=== PATIENT | male | born 1990 | race African-American/Black ===

== ENCOUNTER 2021-12-04 01:05 | Inpatient (IN) | payer MEDICAID, SELFPAY ==
[2021-12-04] VITALS (26 sets, daily range): BP systolic 95–139; BP diastolic 49–94; PULSE 99–130; RESP 16–25; TEMP 36.2–37.2; O2SAT 91–100; BMI 38.3
--- NOTE | ~2021-12-04 | CT_ITS ---
EXAMINATION: CT abdomen pelvis wo con DATE: 12/04/2021 03:42 INDICATION: Right-sided abdominal pain TECHNIQUE: Computed tomography (CT) of the abdomen and pelvis was performed without intravenous contr ast. The dose-length product was 1074.05 mGy-cm. Automated exposure control and iterative reconstruct ion technique were employed. COMPARISON: None. FINDINGS: Lung bases are unremarkable. Heart size normal. Small hiatal hernia. No significant pleural or pericardial effusion. No significant vascular abnormality. No lymphadenopathy. Fatty infiltration of the liver. The spleen, pancreas, adrenal glands and kidneys are unremarkable. N onobstructive bowel gas pattern. No free air or free fluid. Gallbladder is present. No abnormal pelvi c masses or fluid collections. There are mildly prominent mesenteric lymph nodes, likely reactive. No acute osseous abnormality. IMPRESSION: 1. No acute abdominal abnormality. Reviewed, dictated and finalized at location B.
--- NOTE | 2021-12-04 01:15 | ECG_ITS ---
Measurements Intervals [place] Rate: 116 P: DC: 0 QRS: -3 QRSD: 91 T: 34 QT: 303 QTc: 422 Interpretive Statements SINUS TACHYCARDIA EARLY REPOLARIZATION WITHIN NORMAL LIMITS NO PREVIOUS ECG AVAILABLE FOR COMPARISON Electronically Signed On 12-04-2021 14:17:33 CDT by Omid Olson M.D.
[2021-12-04 01:42] LABS: Basophils Absolute Auto 0.1 K/mm3 (0.0-0.1); Basophils Percent Auto 0.7 % (0.2-1.2); Eosinophils Percent Auto 0.1 % (0-4.4); Hematocrit 55.1 % (42.0-52.0); Hemoglobin 16.5 g/dL (14.0-18.0); Immature Granulocyte Absolute 0.04 K/mm3 (0.00-0.031); Immature Granulocyte Percent A 0.4 % (0-0.5); Lymphocytes Absolute Auto 1.76 K/mm3 (0.9-3.2); Lymphocytes Percent Auto 16.9 % (18.3-44.2); Mean Corpuscular HGB Conc 29.9 g/dl (32-36); Mean Corpuscular Volume 70.2 fl (80-100); Mean Platelet Volume 9.8 fl (7.4-10.4); Monocytes Absolute Auto 0.5 K/mm3 (0.1-0.6); Monocytes Percent Auto 4.6 % (2.6-8.5); Neutrophils Absolute Auto 8.1 K/mm3 (1.3-6.7); Neutrophils Percent Auto 77.3 % (45.5-73.1); Platelet Count Result 362 k/mm3 (150-375); Red Blood Count 7.85 M/mm3 (4.6-6.20); Red Cell Distribution Width 17.2 % (11.5-14.5); White Blood Count 10.4 K/mm3 (4.5-10.0)
[2021-12-04 01:45] LABS: Hypochromasia 1+ (NORMAL); Platelet Estimate Adequate (Adequate)
[2021-12-04] MEDS: SODIUM CHLORIDE 0.9% IV 1,000 ML 999 ML IV CONT ×3 (01:45→07:49)
[2021-12-04 01:50] LABS: Add Urine Microscopic? YES; Appearance Urine Clear (Clear); Bilirubin Urine Negative (Negative); Blood Urine 1+ (Negative); Color Urine Straw (Yellow); Glucose Urine UA 3+ mg/dL (Negative); Ketones Urine 2+ mg/dL (Negative); Leukocyte Esterase Ur Negative LEU/UL (Negative); Mucus Urine Rare /lpf; Nitrate Urine Negative (Negative); Protein Urine 1+ mg/dL (Negative); Specific Grav Ur 1.024 (1.001-1.035); Urobilinogen Urine Negative mg/dL (<2.0); WBC Urine 0-3 /hpf
[2021-12-04 01:50] LABS: Alanine Aminotransferase 24 U/L (4-50); Albumin Level 5.3 g/dL (3.5-5.1); Alkaline Phosphatase 136 U/L (38-126); Anion Gap 25 mmol/L (8-16); Aspartate Amino Transferase 18 U/L (17-59); Bilirubin,Total 0.5 mg/dL (0.2-1.3); Blood Urea Nitrogen 23 mg/dL (9-20); Carbon Dioxide 15 mmol/L (22-30); Chloride 92 mmol/L (98-107); Estimated CRCL calculation 72 ml/min; Estimated Glomerular Filt Rate > 60; Glucose 484 mg/dL (65-110); Lipase 137 U/L (23-300); Potassium 5.8 mmol/L (3.4-5.0); Sodium 132 mmol/L (137-145)
[2021-12-04 02:31] LABS: Lactic Acid Reflex 1.8 mmol/L (0.7-2.1)
[2021-12-04 02:39] LABS: Alveolar/Arterial O2 Gradient 27.6 mmHg; Fractional Inspired Oxygen 21 %; HCO3 ABG 9.4 mEq/l (22.0-26.0); Oxygen Content ABG 21.9 %vol (16.0-22.0); Oxygen Saturation ABG 96.1 % (95.0-100.0); Oxyhemoglobin 95.2 % THb (90.0-100.0); PO2 ABG 94.5 mmHg (80.0-100.0); Total Hemoglobin 16.3 g/dL (12.0-18.0)
[2021-12-04 02:41] LABS: pH ABG 7.229 (7.350-7.450)
[2021-12-04 02:42] LABS: Device ROOM AIR; PCO2 ABG 23.1 mmHg (35.0-45.0); Site Drawn LEFT BRACHIAL
--- NOTE | 2021-12-04 02:45 | ED.GENADULT ---
HPI - General Adult General Chief complaint: Weakness Stated complaint: Weakness Time Seen by Provider: 12/04/21 01:44 History of Present Illness HPI narrative: Patient 31-year-old gentleman who presents the emergency department with chief complaint of generalized weakness. Patient reports that he was seen at [facility] recently and was found to be diabetic he was started on Metformin patient states he has been thirsty all the time peeing all the time but noticed that his urine output is started to decrease today. The patient states that he feels very rundown and very weak also reports discomfort in his abdomen. Patient reports has been having nausea and vomiting and has had some diarrhea with this as well. Patient reports been unable to keep fluids down. Related Data Allergies Allergy/AdvReac Type Severity Reaction Status Date / Time No Known Allergies Allergy Verified 12/04/21 02:09 Review of Systems Review of Systems: A 10 system review of systems was completed on the patient and is negative except for what is stated in the HPI. Nursing and ancillary documentation was reviewed. Exam Narrative: GENERAL: Well-appearing, well-nourished, and in no acute distress. HEAD: Normocephalic, atraumatic. EYES: PERRLA and EOMI. ENT: Nares clear, no rhinorrhea or epistaxis. Mucous membranes moist. NECK: Supple. CHEST: Clear to auscultation. No respiratory distress. HEART: Regular rate and rhythm. No murmur heard. Normal peripheral pulses. ABDOMEN: Soft, diffuse mild tenderness to palpation, nondistended, normal active bowel sounds. EXTREMITIES: Normal range of motion. No edema. SKIN: Warm, dry, no rash. NEURO: No focal deficits. Alert and oriented x3. PSYCH: Normal mood and affect. Course Course Emergency Course: EKG showed sinus tachycardia with a rate of initially 123 repeat EKG shows a heart rate of 116. Sinus tachycardia present T waves are somewhat peaked Vital Signs Vital signs: Vital Signs Temperature 37.2 C 12/04/21 01:08 Pulse Rate 118 H 12/04/21 01:08 Respiratory Rate 20 12/04/21 01:08 Blood Pressure 139/91 H 12/04/21 01:08 Pulse Oximetry 99 12/04/21 01:08 Temperature 37.2 C 12/04/21 01:08 Pulse Rate 123 H 12/04/21 04:30 Respiratory Rate 24 H 12/04/21 04:30 Blood Pressure 118/75 12/04/21 04:05 Pulse Oximetry 96 12/04/21 04:30 Medical Decision Making Vital Signs Vital Signs: Vital Signs Temperature 37.2 C 12/04/21 01:08 Pulse Rate 118 H 12/04/21 01:08 Respiratory Rate 20 12/04/21 01:08 Blood Pressure 139/91 H 12/04/21 01:08 Pulse Oximetry 99 12/04/21 01:08 Temperature 37.2 C 12/04/21 01:08 Pulse Rate 123 H 12/04/21 04:30 Respiratory Rate 24 H 12/04/21 04:30 Blood Pressure 118/75 12/04/21 04:05 Pulse Oximetry 96 12/04/21 04:30 Lab Data Result diagrams: 12/04/21 01:34 12/04/21 01:34 Labs: Lab Results 12/04/21 12/04/21 12/04/21 Range/Units 01:33 01:34 01:34 WBC 10.4 H (4.5-10.0) K/mm3 RBC 7.85 H (4.6-6.20) M/mm3 Hgb 16.5 (14.0-18.0) g/dL Hct 55.1 H (42.0-52.0) % MCV 70.2 L (80-100) fl MCH 21.0 L (26-34) pg MCHC 29.9 L (32-36) g/dl RDW 17.2 H (11.5-14.5) % Plt Count 362 (150-375) k/mm3 MPV 9.8 (7.4-10.4) fl Immature Gran % (Auto) 0.4 (0-0.5) % Neut % (Auto) 77.3 H (45.5-73.1) % Lymph % (Auto) 16.9 L (18.3-44.2) % Travis % (Auto) 4.6 (2.6-8.5) % Eos % (Auto) 0.1 (0-4.4) % Baso % (Auto) 0.7 (0.2-1.2) % Lymph # (Auto) 1.76 (0.9-3.2) K/mm3 Travis # (Auto) 0.5 (0.1-0.6) K/mm3 Eos # (Auto) 0.0 (0-0.3) K/mm3 Baso # (Auto) 0.1 (0.0-0.1) K/mm3 Abs Immat Gran (auto) 0.04 H (0.00-0.031) K/mm3 Absolute Neuts (auto) 8.1 H (1.3-6.7) K/mm3 Absolute Nucleated RBC 0.0 (0.0-0.012) K/mm3 Nucleated RBC % 0.0 (0.0-0.2) % Platelet Estimate Adequate (Adequate) Hypochromasia 1+ (NORMAL
[2021-12-04 03:05] LABS: Beta-Hydroxybutyrate/Acetoacetate 9.05 mmol/L (0.02-0.27)
[2021-12-04] MEDS: INSULIN HUMAN REGULAR (*BKC) 100 UNITS in SODIUM CHLORIDE 0.9% IV 99 ML 6.5 UNITS IV CONT (03:45)
[2021-12-04 03:53] LABS: Glucose Point of Care 386 mg/dl (65-105)
[2021-12-04] MEDS: SODIUM CHLORIDE 0.9% IV 1,000 ML 200 ML IV CONT (04:31)
[2021-12-04 04:53] LABS: Glucose Point of Care 357 mg/dl (65-105)
[2021-12-04] MEDS: SODIUM CHLORIDE 0.9% IV 1,000 ML 150 ML IV CONT ×2 (05:30→21:08)
--- NOTE | 2021-12-04 05:40 | ADMGEN ---
This patient, Hadley Farias, was admitted to Intensive Care Unit-5 on 12/04/21 at 0530. Patient/family oriented to hospital policies and general routines including ID bracelet, bed and alarms, visiting hours, pain management, procedures, bathroom and other care routines, personal items, smoking policy, room service/diet, and visiting hours. Information on how to activate the Rapid Response Team has been discussed. Patient/Family are encouraged to report perceived risks to care and to ask questions if they do not understand what they are told or what they should do.
--- NOTE | 2021-12-04 05:46 | PM.IMHP ---
H&P: HPI History of Present Illness Date/Time: 12/04/21 05:46 Chief Complaint: Generalized weakness Narrative: Patient is a 31-year-old man who presents to the ED today with generalized weakness. He had been feeling this way for the past week or so. He also has associated history of peeing all the time and feeling thirsty all the time. He was peeing every 5 minutes and hence had been to the ED a week ago at [facility]. His blood sugar there was 360 and was diagnosed with diabetes. He was discharged home on metformin which he started taking since then. He report he continued to feel weak and run down and started to have discomfort in his abdomen. He also reports that he had been having some dark colored stool. There was an episode of vomiting yesterday in the morning but has not had any nausea or vomiting otherwise. He also reported that he has not been able to keep his fluid down but he did not complain so for me. In the ER he was noted to have acidosis and was eventually diagnosed with DKA. He was started on IV fluids and IV insulin drip. He is getting admitted to ICU further evaluation and management. He denies any drug use any prior history of any medical problems. He does report a family history of diabetes in his father and grandfather at early age. Review of Systems Review of Systems: - CONSTITUTIONAL: Denies weight loss, fever and chills. - HEENT: Denies changes in vision and hearing - RESPIRATORY: Denies SOB and cough. - CV: Denies palpitations and CP. - GI: Denies abdominal pain, reports nausea, vomiting and denies diarrhea. - : Denies dysuria and urinary frequency. - MSK: Denies myalgia and joint pain. Reports generalized weakness - SKIN: Denies rash and pruritus. - NEUROLOGICAL: Denies headache and syncope. - PSYCHIATRIC: Denies recent changes in mood. Denies anxiety and depression. All systems reviewed & are unremarkable except as noted in HPI and below Constitutional: Constitutional: Reports fatigue and Reports weakness Neurologic: Reports weakness Endocrine: Endocrine: Reports fatigue Meds Home Medications and Allergies Allergies Allergy/AdvReac Type Severity Reaction Status Date / Time No Known Allergies Allergy Verified 12/04/21 02:09 Vital Signs Vital Signs - 24 hr 12/04/21 01:08 12/04/21 01:21 12/04/21 01:26 Temperature 98.9 F Pulse Rate 118 H 118 H 122 H Respiratory Rate 20 23 H Blood Pressure 139/91 H Pulse Oximetry 99 98 12/04/21 01:44 12/04/21 02:01 12/04/21 02:02 Temperature Pulse Rate 112 H 108 H 108 H Respiratory Rate 25 H 21 H 19 Blood Pressure 127/94 H Pulse Oximetry 98 99 100 12/04/21 02:30 12/04/21 03:09 12/04/21 03:10 Temperature Pulse Rate 120 H 118 H 116 H Respiratory Rate 21 H 23 H 23 H Blood Pressure 139/83 Pulse Oximetry 99 99 99 12/04/21 03:38 12/04/21 03:39 12/04/21 04:00 Temperature Pulse Rate 117 H 118 H 125 H Respiratory Rate 18 25 H 25 H Blood Pressure 128/86 Pulse Oximetry 99 99 91 12/04/21 04:05 12/04/21 04:06 12/04/21 04:30 Temperature Pulse Rate 123 H 118 H 123 H Respiratory Rate 24 H 20 24 H Blood Pressure 118/75 Pulse Oximetry 99 99 96 12/04/21 05:10 12/04/21 05:30 Temperature 98.8 F 98.2 F Pulse Rate 130 H 121 H Respiratory Rate 22 H 22 H Blood Pressure 95/49 L 120/78 Pulse Oximetry 96 98 Exam Narrative: GENERAL: Well-appearing, well-nourished, and in no acute distress. HEAD: Normocephalic, atraumatic. EYES: PERRLA and EOMI. ENT: Nares clear, no rhinorrhea or epistaxis. Mucous membranes dry NECK: Supple. Nontender CHEST: Clear to auscultation. No respiratory distress. HEART: Tachycardic regular rhythm No murmur heard. Normal peripheral pulses. ABDOMEN: Soft, nontender, nondistended, normal active bowel sounds. EXTREMITIES: Normal range of motion. No edema. SKIN: Warm, dry, no rash. NEURO: No focal deficits. Alert and oriented x3. PSYCH: Normal mood and aff
[2021-12-04] MEDS: ONDANSETRON INJ 4 MG/2 ML VIAL IV PUSH (06:17)
[2021-12-04 06:38] LABS: Anion Gap 21 mmol/L (8-16); Blood Urea Nitrogen 21 mg/dL (9-20); Calcium 8.9 mg/dL (8.4-10.2); Carbon Dioxide 15 mmol/L (22-30); Chloride 103 mmol/L (98-107); Estimated CRCL calculation 81 ml/min; Estimated Glomerular Filt Rate > 60; Glucose 262 mg/dL (65-110); Potassium 4.5 mmol/L (3.4-5.0); Sodium 139 mmol/L (137-145)
[2021-12-04 06:48] LABS: Glucose Point of Care 238 mg/dl (65-105)
[2021-12-04 06:48] LABS: Glucose Point of Care 296 mg/dl (65-105)
[2021-12-04] MEDS: KCL 20 MEQ/D5/0.45% SOD CHL 1,000 ML 150 ML IV CONT (06:48)
[2021-12-04 06:54] LABS: Barbiturate Screen Urine Negative (Negative); Benzodiazepines Screen Urine Negative (Negative)
[2021-12-04 07:00] LABS: Amphetamine Screen Urine Negative (Negative); Cannabinoid Screen Urine Negative (Negative); Cocaine Screen Urine Negative (Negative); Methadone Screen Urine Negative (Negative); Opiate Screen Urine Negative (Negative); Phencyclidine Screen Urine Negative (Negative)
[2021-12-04 07:46] LABS: Hemoglobin A1C 10.7 % (<5.7)
[2021-12-04 07:52] LABS: Glucose Point of Care 247 mg/dl (65-105)
--- NOTE | 2021-12-04 08:06 | WPDCNINT ---
Assessment and Plan Assessment and plan (1) Diabetic ketoacidosis: Qualifiers: Diabetes mellitus complication detail: without coma Diabetes mellitus type: other specified (including [place]) Qualified Code(s): E13.10 - Other specified diabetes mellitus with ketoacidosis without coma Code(s): E11.10 - Type 2 diabetes mellitus with ketoacidosis without coma Status: Acute Assessment and Plan: Patient has been recently diagnosed with diabetes at [facility] 1 week prior to this admission -patient presented with nausea, vomiting, abdominal pain, generalized weakness and was found to be in DKA in the ER with elevated beta hydroxybutyrate, anion gap metabolic acidosis, urine was positive for ketones and glucose -patient received total of 3 L IV fluid bolus in the ER, I will give an additional 1 L IV fluid boluses patient is still tachycardic and thirsty along with dry oral mucosa -continue insulin infusion and IV fluids per DKA protocol and monitor BMPs per protocol (2) KILO (acute kidney injury): Code(s): N17.9 - Acute kidney failure, unspecified Status: Acute Assessment and Plan: Patient presented with acute kidney injury, creatinine 1.5 on admission -repeat creatinine is 1.3 this morning, urine output has been adequate -likely related to hypovolemia from decreased p.o. intake, polyuria and diabetic ketoacidosis -continue IV fluids and monitor urine output, electrolytes and renal function (3) Diabetes mellitus: Code(s): E11.9 - Type 2 diabetes mellitus without complications Status: Acute Assessment and Plan: New onset diabetes, was diagnosed 1 week prior to this admission at [facility] per patient and he was started on metformin which she was taking. -hemoglobin A1c is 10.7 this admission -patient may require insulin treatment for his diabetes as outpatient (4) Hepatic steatosis: Code(s): K76.0 - Fatty (change of) liver, not elsewhere classified Status: Acute Assessment and Plan: CT scan of the abdomen and pelvis showed hepatic steatosis -50s are within normal limits except alk phos is elevated Additional Plan DVT prophylaxis: Enoxaparin Nutrition NPO except ice chips Code status: Full code Critical care time spent: 42 minute This dictation may have been done utilizing a voice recognition system. Attempts have been made to correct errors. However, there may be uncorrected grammatical, spelling, and recognition errors present. Due to a high probability of clinically significant, life threatening deterioration, the patient required my highest level of preparedness to intervene emergently and I personally spent this critical care time directly and personally managing the patient. This critical care time included obtaining a history; examining the patient; pulse oximetry; ordering and review of studies; arranging urgent treatment with development of a management plan; evaluation of patient's response to treatment; frequent reassessment; and discussions with other providers. It was exclusive of separately billable procedures and treating other patients and teaching time. Please see Assessment and Plan section and the rest of the note for further information on patient assessment and treatment [employer] Operator Consult Note Consult date: 12/04/21 Time Seen: 06:58 Reason for consult: Diabetic ketoacidosis, nausea, vomiting, generalized weakness, abdominal pain HPI: Hadley Farias is a 31 year old male with recently diagnosed diabetes at an outside hospital 1 week prior to admission here presented the ED on 12/04/2021 with complains of generalized weakness. He has been feeling that way for the past week or so and also complained of polyuria and polydipsia. He was recently discharged from [facility] 1 week prior to this admission for similar reasons and was diagnosed with new onset diabetes. He was discharged home on metformin that has
[2021-12-04 08:48] LABS: Glucose Point of Care 173 mg/dl (65-105)
[2021-12-04 09:32] LABS: Glucose Point of Care 197 mg/dl (65-105)
[2021-12-04 09:59] LABS: Anion Gap 14 mmol/L (8-16); Blood Urea Nitrogen 17 mg/dL (9-20); Calcium 8.4 mg/dL (8.4-10.2); Carbon Dioxide 16 mmol/L (22-30); Chloride 107 mmol/L (98-107); Estimated CRCL calculation 103 ml/min; Estimated Glomerular Filt Rate > 60; Glucose 180 mg/dL (65-110); Potassium 4.4 mmol/L (3.4-5.0); Sodium 137 mmol/L (137-145)
[2021-12-04] MEDS: LACTATED RINGERS 1,000 ML 999 ML IV CONT (10:23)
[2021-12-04] MEDS: ENOXAPARIN 40 MG/0.4 ML SYRINGE SUB-Q (10:23)
[2021-12-04 10:39] LABS: Glucose Point of Care 187 mg/dl (65-105)
--- NOTE | 2021-12-04 10:40 | PCFNICU ---
ICU Rounding Note: Pt current nutrition is NPO. Last recorded weight is 104.6 kg Bowel Motility:No BM reported. Labs Reviewed:Glu 262, Cr 1.5,BUN 23, K 5.8,Na 132, Hct 55.1 Meds Noted:KCL, NS, Lovenox, Insulin, LR Skin: WNL Additional Notes: Physician consult for DKA. Patient admitted early this morning. New dx of DM about 1 week ago. Patient very tired today, NPO. Will monitor in ICU rounds and educated prior to discharge. Following daily in ICU rounds.
[2021-12-04 11:14] LABS: Glucose Point of Care 160 mg/dl (65-105)
[2021-12-04 12:13] LABS: Glucose Point of Care 154 mg/dl (65-105)
[2021-12-04] MEDS: INSULIN HUMAN REGULAR (*BKC) 100 UNITS in SODIUM CHLORIDE 0.9% IV 99 ML 7.52 UNITS IV CONT (12:39)
[2021-12-04 13:08] LABS: Glucose Point of Care 146 mg/dl (65-105)
[2021-12-04 13:40] LABS: Anion Gap 6 mmol/L (8-16); Blood Urea Nitrogen 15 mg/dL (9-20); Calcium 8.2 mg/dL (8.4-10.2); Carbon Dioxide 21 mmol/L (22-30); Chloride 108 mmol/L (98-107); Estimated CRCL calculation 114 ml/min; Estimated Glomerular Filt Rate > 60; Glucose 128 mg/dL (65-110); Sodium 135 mmol/L (137-145)
--- NOTE | 2021-12-04 14:01 | PM.IMPN ---
Progress Note: A&P Assessment and Plan (1) Diabetic ketoacidosis: Qualifiers: Diabetes mellitus complication detail: without coma Diabetes mellitus type: other specified (including [place]) Qualified Code(s): E13.10 - Other specified diabetes mellitus with ketoacidosis without coma Code(s): E11.10 - Type 2 diabetes mellitus with ketoacidosis without coma Status: Acute Assessment and Plan: Likely newly diagnosed type 1 diabetes recent history of polydipsia polyuria worsened over the last few days. Continue to treat with insulin drip and iv fluids awaiting gap to close. Pt is in ICU. (2) KILO (acute kidney injury): Code(s): N17.9 - Acute kidney failure, unspecified Status: Resolved Assessment and Plan: Creat is nl now after iv hydration (3) Diabetes mellitus: Code(s): E11.9 - Type 2 diabetes mellitus without complications Status: Acute Assessment and Plan: History of polydipsia polyuria Pt will need DM education dietican consult DM supplies and insulin once transitioned to the medical floor. Subjective Date/time seen: 12/04/21 14:01 Interval history: 31 year old man here with DKA, new onset DM. In the ER he was noted to have acidosis and was eventually diagnosed with DKA. Pt is doing well in ICU on insulin drip. Positive FH with his father. No other specific complaints today. Review of Systems Review of Systems: All systems reviewed & are unremarkable except as noted in HPI and below Exam Const: General: other (Morbidly obese) HENMT: Head: normal to inspection Resp: Effort & Inspection: no respiratory distress Auscultation: no rhonchi and no wheezes Cardio: Rate: regular rate Rhythm: regular rhythm GI: Inspection: normal to inspection GI Palp: No abdominal tenderness, No Guarding due to palpation present (GI) and No Hepatomegaly present Auscultation: normal bowel sounds Extrem: General: clubbing, cyanosis or edema noted Objective Data Vital Signs Vital Signs: Vital Signs - 24 hr 12/04/21 01:08 12/04/21 01:21 12/04/21 01:26 Temperature 37.2 C Pulse Rate 118 H 118 H 122 H Respiratory Rate 20 23 H Blood Pressure 139/91 H Pulse Oximetry 99 98 12/04/21 01:44 12/04/21 02:01 12/04/21 02:02 Temperature Pulse Rate 112 H 108 H 108 H Respiratory Rate 25 H 21 H 19 Blood Pressure 127/94 H Pulse Oximetry 98 99 100 12/04/21 02:30 12/04/21 03:09 12/04/21 03:10 Temperature Pulse Rate 120 H 118 H 116 H Respiratory Rate 21 H 23 H 23 H Blood Pressure 139/83 Pulse Oximetry 99 99 99 12/04/21 03:38 12/04/21 03:39 12/04/21 04:00 Temperature Pulse Rate 117 H 118 H 125 H Respiratory Rate 18 25 H 25 H Blood Pressure 128/86 Pulse Oximetry 99 99 91 12/04/21 04:05 12/04/21 04:06 12/04/21 04:30 Temperature Pulse Rate 123 H 118 H 123 H Respiratory Rate 24 H 20 24 H Blood Pressure 118/75 Pulse Oximetry 99 99 96 12/04/21 05:10 12/04/21 05:30 12/04/21 06:00 Temperature 37.1 C 36.8 C Pulse Rate 130 H 121 H 123 H Respiratory Rate 22 H 22 H 21 H Blood Pressure 95/49 L 120/78 128/80 Pulse Oximetry 96 98 98 12/04/21 08:00 12/04/21 10:00 12/04/21 12:00 Temperature 36.6 C 36.6 C 36.9 C Pulse Rate 120 H 119 H 117 H Respiratory Rate 21 H 22 H 18 Blood Pressure 116/70 126/80 123/76 Pulse Oximetry 98 96 96 Intake/Output Intake/Output: Intake & Output 12/01/21 12/02/21 12/03/21 12/04/21 22:59 22:59 23:59 23:59 Intake Total 4100 Output Total 1545 Balance 2555 Meds/Results Medications: Active Medications Generic Name Dose Route Start Last Admin Trade Name Freq PRN Reason Stop Dose Admin Dextrose 12.5 gm 12/04/21 05:36 Dextrose 50% 25 Gm/50 Ml Syringe IV PUSH PRN PRN Hypoglycemia Protocol Enoxaparin Sodium 40 mg 12/04/21 09:00 12/04/21 10:23 Enoxaparin 40 Mg/0.4 Ml Syringe SUB-Q 40 mg DAILY JENNIFER Administration Glucagon 1 mg 12/04/21 05:36 Gluc
[2021-12-04 14:10] LABS: Glucose Point of Care 129 mg/dl (65-105)
[2021-12-04] MEDS: INSULIN GLARGINE (*BKC) 100 UNITS/ML 35 UNITS SUB-Q (14:21)
[2021-12-04 15:19] LABS: Glucose Point of Care 123 mg/dl (65-105)
[2021-12-04 16:09] LABS: Glucose Point of Care 347 mg/dl (65-105)
[2021-12-04] MEDS: INSULIN ASPART (*BKC) 100 UNITS/ML SUB-Q (16:15)
[2021-12-04 17:48] LABS: Anion Gap 9 mmol/L (8-16); Blood Urea Nitrogen 15 mg/dL (9-20); Calcium 8.6 mg/dL (8.4-10.2); Carbon Dioxide 20 mmol/L (22-30); Chloride 104 mmol/L (98-107); Estimated CRCL calculation 103 ml/min; Estimated Glomerular Filt Rate > 60; Glucose 320 mg/dL (65-110); Potassium 4.2 mmol/L (3.4-5.0); Sodium 133 mmol/L (137-145)
--- NOTE | 2021-12-04 17:54 | PC.NURSE ---
This patient, Hadley Farias, was received from [ ICU] on 12/04/21 at 1754. Patient/family oriented to unit policies and routines
[2021-12-04 21:52] LABS: Glucose Point of Care 264 mg/dl (65-105)
[2021-12-04 22:13] LABS: Anion Gap 10 mmol/L (8-16); Blood Urea Nitrogen 14 mg/dL (9-20); Calcium 8.6 mg/dL (8.4-10.2); Carbon Dioxide 22 mmol/L (22-30); Chloride 102 mmol/L (98-107); Estimated CRCL calculation 103 ml/min; Estimated Glomerular Filt Rate > 60; Glucose 283 mg/dL (65-110); Potassium 4.1 mmol/L (3.4-5.0); Sodium 134 mmol/L (137-145)
[2021-12-05] VITALS (16 sets, daily range): BP systolic 102–135; BP diastolic 59–78; PULSE 93–150; RESP 18–21; TEMP 36.2–36.7; O2SAT 98–100
[2021-12-05 00:19] LABS: Glucose Point of Care 411 mg/dl (65-105)
[2021-12-05] MEDS: INSULIN ASPART (*BKC) 100 UNITS/ML 8 UNITS SUB-Q (01:14)
[2021-12-05 01:59] LABS: Anion Gap 11 mmol/L (8-16); Blood Urea Nitrogen 13 mg/dL (9-20); Calcium 8.5 mg/dL (8.4-10.2); Carbon Dioxide 21 mmol/L (22-30); Chloride 103 mmol/L (98-107); Estimated CRCL calculation 103 ml/min; Estimated Glomerular Filt Rate > 60; Glucose 324 mg/dL (65-110); Sodium 135 mmol/L (137-145)
[2021-12-05] MEDS: SODIUM CHLORIDE 0.9% IV 1,000 ML 150 ML IV CONT (03:57)
[2021-12-05 05:22] LABS: Glucose Point of Care 227 mg/dl (65-105)
[2021-12-05 05:53] LABS: Basophils Percent Auto 0.5 % (0.2-1.2); Eosinophils Absolute Auto 0.2 K/mm3 (0-0.3); Hematocrit 44.1 % (42.0-52.0); Hemoglobin 13.5 g/dL (14.0-18.0); Immature Granulocyte Absolute 0.02 K/mm3 (0.00-0.031); Immature Granulocyte Percent A 0.3 % (0-0.5); Lymphocytes Absolute Auto 1.88 K/mm3 (0.9-3.2); Lymphocytes Percent Auto 25.5 % (18.3-44.2); Mean Corpuscular HGB Conc 30.6 g/dl (32-36); Mean Corpuscular Hemoglobin 21.1 pg (26-34); Mean Corpuscular Volume 68.8 fl (80-100); Mean Platelet Volume 10.1 fl (7.4-10.4); Monocytes Absolute Auto 0.6 K/mm3 (0.1-0.6); Monocytes Percent Auto 8.5 % (2.6-8.5); Neutrophils Absolute Auto 4.6 K/mm3 (1.3-6.7); Neutrophils Percent Auto 62.2 % (45.5-73.1); Platelet Count Result 268 k/mm3 (150-375); Red Blood Count 6.41 M/mm3 (4.6-6.20); Red Cell Distribution Width 14.7 % (11.5-14.5); White Blood Count 7.4 K/mm3 (4.5-10.0)
[2021-12-05 06:05] LABS: Alanine Aminotransferase 16 U/L (4-50); Albumin Level 3.6 g/dL (3.5-5.1); Alkaline Phosphatase 86 U/L (38-126); Anion Gap 6 mmol/L (8-16); Aspartate Amino Transferase 15 U/L (17-59); Bilirubin,Total 0.6 mg/dL (0.2-1.3); Blood Urea Nitrogen 11 mg/dL (9-20); Calcium 8.3 mg/dL (8.4-10.2); Carbon Dioxide 23 mmol/L (22-30); Chloride 105 mmol/L (98-107); Estimated CRCL calculation 114 ml/min; Estimated Glomerular Filt Rate > 60; Glucose 226 mg/dL (65-110); Potassium 3.9 mmol/L (3.4-5.0); Sodium 134 mmol/L (137-145)
[2021-12-05] MEDS: ENOXAPARIN 40 MG/0.4 ML SYRINGE SUB-Q (08:20)
[2021-12-05] MEDS: metFORMIN HCL 500 MG TABLET 1000 MG PO (08:21)
[2021-12-05 08:23] LABS: Glucose Point of Care 240 mg/dl (65-105)
[2021-12-05] MEDS: INSULIN ASPART (*BKC) 100 UNITS/ML SUB-Q ×3 (08:25→16:24)
[2021-12-05] MEDS: INSULIN GLARGINE (*BKC) 100 UNITS/ML 35 UNITS SUB-Q (08:27)
--- NOTE | 2021-12-05 09:00 | PM.IMPN ---
Progress Note: A&P Assessment and Plan (1) Diabetic ketoacidosis: Qualifiers: Diabetes mellitus complication detail: without coma Diabetes mellitus type: other specified (including [place]) Qualified Code(s): E13.10 - Other specified diabetes mellitus with ketoacidosis without coma Code(s): E11.10 - Type 2 diabetes mellitus with ketoacidosis without coma Status: Acute Assessment and Plan: RESOLVED Likely newly diagnosed type 1 diabetes recent history of polydipsia polyuria worsened over the last few days. Continue to treat with insulin drip and iv fluids awaiting gap to close. Pt is in ICU. (2) KILO (acute kidney injury): Code(s): N17.9 - Acute kidney failure, unspecified Status: Resolved Assessment and Plan: RESOLVED Creat is nl now after iv hydration (3) Diabetes mellitus: Code(s): E11.9 - Type 2 diabetes mellitus without complications Status: Acute Assessment and Plan: Glucose is 226 History of polydipsia polyuria Pt will need DM education dietican consult DM supplies and insulin once transitioned to the medical floor. Insulin and medications have been changed Additional fluids also given (4) Tachycardia: Code(s): R00.0 - Tachycardia, unspecified Status: Acute Assessment and Plan: HR is 110-150 1250ml fluid bolus given Tele monitor Trend heart rate (5) Dizziness: Code(s): R42 - Dizziness and giddiness Status: Acute Assessment and Plan: Reported dizziness with activity Orthostatic blood pressures ordered Trend BP and symptoms Time Spent With Patient Time with patient: Greater than 35 minutes Subjective Date/time seen: 12/05/21 09 Interval history: 31 year old man here with DKA, new onset DM. In the ER he was noted to have acidosis and was eventually diagnosed with DKA. Pt is doing well in ICU on insulin drip. Positive FH with his father. No other specific complaints today. 12/05/21 0900 Patient states that he is doing okay however his heart rate has been running in will into 126 130s. Patient did have an episode where he went up to the 160s with activity. Patient has been bolused. Continue tele monitor at this time. Patient denies any chest pain, shortness of breath, nausea, vomiting, diarrhea, constipation, weakness or fatigue. Patient did state that he gets a little abdominal upset after eating. Review of Systems Review of Systems: All systems reviewed & are unremarkable except as noted in HPI and below Exam Const: General: other (Morbidly obese) Nutritional Appearance: well nourished Orientation/consciousness: patient oriented x3 Limitations: no limitations HENMT: Head: normal to inspection Ears: hearing grossly normal bilaterally General nose exam: Normal external nose present Mouth: Yes Normal oral and palatal mucosa present, Yes lip normal and Yes tongue normal Teeth and gingiva: abnormal tooth and associated gingiva and poor dentition Eyes: General: appearance normal, both eyes and all related structures Neck: Neck: normal visual inspection, full ROM, trachea midline and supple Chest: Chest palpation & inspection: normal inspection of the chest Resp: Effort & Inspection: no respiratory distress Auscultation: no rhonchi and no wheezes Cardio: Jugular venous distension: no JVD Rate: regular rate Rhythm: regular rhythm Heart sounds: S1 normal heart sound present and S2 normal heart sound present Peripheral pulses: Peripheral pulses 2+ throughout GI: Inspection: normal to inspection GI Palp: Yes Soft to palpation and No Tenderness to palpation present (GI) Auscultation: normal bowel sounds Skin: General skin exam: normal color and no rashes or lesions noted Lesions: no lesions Rashes: no rashes Trauma: no lacerations or abrasions Wounds: no wounds Hair: normal Nails: normal Neuro: General: patient oriented x3, moves all extremities and N
[2021-12-05 11:20] LABS: Glucose Point of Care 268 mg/dl (65-105)
[2021-12-05] MEDS: SODIUM CHLORIDE 0.9% IV 1,000 ML 999 ML IV CONT (14:02)
[2021-12-05 16:25] LABS: Glucose Point of Care 241 mg/dl (65-105)
[2021-12-05] MEDS: INSULIN ASPART (*BKC) 100 UNITS/ML 7 UNITS SUB-Q (16:25)
[2021-12-05] MEDS: metFORMIN HCL 500 MG TABLET PO (16:31)
[2021-12-05] MEDS: LACTATED RINGERS 1,000 ML 100 ML IV CONT (17:57)
[2021-12-05 20:17] LABS: Glucose Point of Care 168 mg/dl (65-105)
[2021-12-06] VITALS (7 sets, daily range): BP systolic 118–142; BP diastolic 68–75; PULSE 82–107; RESP 18–21; TEMP 36–36.8; O2SAT 98–100
[2021-12-06] MEDS: LACTATED RINGERS 1,000 ML 100 ML IV CONT (03:20)
[2021-12-06 06:13] LABS: Basophils Absolute Auto 0.1 K/mm3 (0.0-0.1); Basophils Percent Auto 0.9 % (0.2-1.2); Eosinophils Absolute Auto 0.2 K/mm3 (0-0.3); Eosinophils Percent Auto 4.4 % (0-4.4); Hematocrit 41.1 % (42.0-52.0); Hemoglobin 12.6 g/dL (14.0-18.0); Immature Granulocyte Absolute 0.01 K/mm3 (0.00-0.031); Immature Granulocyte Percent A 0.2 % (0-0.5); Lymphocytes Absolute Auto 1.97 K/mm3 (0.9-3.2); Lymphocytes Percent Auto 37.4 % (18.3-44.2); Mean Corpuscular HGB Conc 30.7 g/dl (32-36); Mean Corpuscular Volume 68.5 fl (80-100); Mean Platelet Volume 10.2 fl (7.4-10.4); Monocytes Absolute Auto 0.5 K/mm3 (0.1-0.6); Monocytes Percent Auto 10.1 % (2.6-8.5); Neutrophils Absolute Auto 2.5 K/mm3 (1.3-6.7); Platelet Count Result 242 k/mm3 (150-375); White Blood Count 5.3 K/mm3 (4.5-10.0)
[2021-12-06 06:40] LABS: Alanine Aminotransferase 16 U/L (4-50); Albumin Level 3.5 g/dL (3.5-5.1); Alkaline Phosphatase 75 U/L (38-126); Anion Gap 8 mmol/L (8-16); Aspartate Amino Transferase 18 U/L (17-59); Bilirubin,Total 0.6 mg/dL (0.2-1.3); Blood Urea Nitrogen 5 mg/dL (9-20); Calcium 8.5 mg/dL (8.4-10.2); Carbon Dioxide 27 mmol/L (22-30); Chloride 99 mmol/L (98-107); Estimated CRCL calculation 114 ml/min; Estimated Glomerular Filt Rate > 60; Glucose 117 mg/dL (65-110); Magnesium 1.6 mg/dL (1.6-2.3); Sodium 134 mmol/L (137-145)
--- NOTE | 2021-12-06 07:30 | PM.DS ---
DS: Admitting Diagnosis Discharge Date 12/06/21729 Admitting Diagnosis New onset diabetes DS: Discharge Diagnosis Discharge Diagnosis (1) Diabetic ketoacidosis: Qualifiers: Diabetes mellitus complication detail: without coma Diabetes mellitus type: other specified (including [place]) Qualified Code(s): E13.10 - Other specified diabetes mellitus with ketoacidosis without coma Code(s): E11.10 - Type 2 diabetes mellitus with ketoacidosis without coma Status: Acute Assessment and Plan: RESOLVED Likely newly diagnosed type 1 diabetes recent history of polydipsia polyuria worsened over the last few days. Continue to treat with insulin drip and iv fluids awaiting gap to close. Pt is in ICU. 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 Insulin and medications have been changed Additional fluids also given rehydration over night (4) Tachycardia: Code(s): R00.0 - Tachycardia, unspecified Status: Acute Assessment and Plan: HR is 110-150 Better with fluid administration, and overnight hydration 1250ml fluid bolus given Tele monitor Trend heart rate (5) Dizziness: Code(s): R42 - Dizziness and giddiness Status: Acute Assessment and Plan: Reported dizziness with activity Orthostatic blood pressures negative L: 130/67, Sit: 113/69, Stand: 135/63 Trend BP and symptoms DS: Summary Hospital Course Hospital Course: Patient is a 31-year-old male with no significant past medical history who presented to the ED with generalized weakness. Patient been experiencing this for about a week. Upon admission patient was noted to elevated glucose at 484. Patient was taken to ICU for IV insulin and fluids. Glucose has reduced he was transferred to [facility]. It was noted the patient had been relatively tachycardic with heart rate in the 130s. Patient was given additional fluids. life educator was also consult along with dietitian. Patient has been started on insulin and glucose has been controlled in the 110 to 160s. Patient is stable and ready for discharge at this time. Patient has been educated about how to get to give himself injections and to check his blood sugar. Additional education has been given to patient about eating habits and controlling his glucose. Patient denies any chest pain, shortness of breath, nausea, vomiting, diarrhea, constipation, weakness, fatigue. Status at Discharge Functional status at discharge: independent ambulation Overall status at discharge: patient is progressing back to baseline Time Spent with Patient Time attestation: Total time spent providing and/or coordinating discharge services: 48 minutes Time spent: Greater than 30 minutes Specific discharge activities: Diagnostic testing, chart review, developing a treatment plan, education, care coordination documentation, physical exam, result review Exam Const: General: other (Morbidly obese) Nutritional Appearance: well nourished Orientation/consciousness: patient oriented x3 Limitations: no limitations HENMT: Head: normal to inspection Ears: hearing grossly normal bilaterally General nose exam: Normal external nose present Mouth: Yes Normal oral and palatal mucosa present, Yes lip normal and Yes tongue normal Teeth and gingiva: abnormal tooth and associated gingiva and poor dentition Eyes: General: appearance normal, both eyes and all related structures Neck: Neck: normal vi
[2021-12-06 07:39] LABS: Glucose Point of Care 133 mg/dl (65-105)
[2021-12-06] MEDS: MAGNESIUM SULF 4 GM/WATER100ML 4 GM/100 ML BAG IVPB (07:42)
[2021-12-06] MEDS: metFORMIN HCL 500 MG TABLET PO ×2 (08:22→16:36)
[2021-12-06] MEDS: ENOXAPARIN 40 MG/0.4 ML SYRINGE SUB-Q (08:22)
[2021-12-06] MEDS: INSULIN ASPART (*BKC) 100 UNITS/ML 7 UNITS SUB-Q ×3 (08:23→16:36)
[2021-12-06] MEDS: INSULIN GLARGINE (*BKC) 100 UNITS/ML 35 UNITS SUB-Q (08:23)
[2021-12-06 11:17] LABS: Glucose Point of Care 135 mg/dl (65-105)
--- NOTE | 2021-12-06 12:00 | PCCDE ---
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 Met with pt today to complete diabetes education. Pt is Medicaid pending. Unemployed, lives with s.o. (also has DM) and kids. Yesterday, 7 units Novolog TID WM was added to 35 units Lantus daily and high dose correction scale. Today BG has been 133-135mg/dl. Discussed with pt and Rex RUSH the pros/cons of premixed insulin vs basal bolus regimen including cost/coverage. Advised pt to use [facility] nicky to find lowest prices until Medicaid kicks in. Estimated it could be $300 and pt sts would be okay. Pt agrees to basal bolus. Pt is being discharged on 35 units Lantus Solostar daily and 7 units Humalog Kwikpen AC TID. INSULIN/DM MEDS: Instructed pt on this regimen, discussing the importance of consistent carb intake with set insulin dosing. Demonstrated how to use insulin pen; reviewed: insulin actions, when to take, site selection/rotation, sharp disposal, storage/expiration. Pt performed return demo using training pen and fake injection site without problems. Provided pt with 5 sample packs of BD Anita pen needles. Advised he is to continue with Metformin BID and Metformin is available at [facility] for $4/month. MONITORING: Provided ONE TOUCH VERIO REFLECT BG meter (free of charge-and also will be covered by Medicaid) and instructed: how to use, when to test, BG goals, using with ONE TOUCH REVEAL nicky to track and share results, coverage and how to get supplies. Reviewed causes, sx and tx of hypo and hyperglycemia. Advised to carry glucose tabs and to notify PCP about hypoglycemia. 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 Provided DM specialist contact info and encouraged to call prn.
[2021-12-06 16:33] LABS: Glucose Point of Care 156 mg/dl (65-105)
== END 2021-12-06 18:15 | disposition home or self-care (01) | DRG 420 ==
LOC: ANHED 04:39 → ANHICU 05:11 → ANH2MED 22:19 → ANHICU 12-07 13:35
PROVIDERS: Internal Medicine; Admitting Provider Internal Medicine; Emergency Provider Emergency Medicine; Visit Provider Nurse Practitioner
DX: E10.10 Type 1 diabetes mellitus with ketoacidosis without coma (principal); N17.9 Acute kidney failure, unspecified; E86.1 Hypovolemia; K76.0 Fatty (change of) liver, not elsewhere classified; R11.2 Nausea with vomiting, unspecified; Z79.84 Long term (current) use of oral hypoglycemic drugs; E66.01 Morbid (severe) obesity due to excess calories; Z68.38 Body mass index [BMI] 38.0-38.9, adult
CPT/HCPCS: 36415; 36600; 74176; 80048; 80053; 80307; 81001; 82010; 82805; 82948; 83036; 83605; 83690; 83735; 84100; 85025; 86337; 93005; 96361; 96365; 99285; A9270; J1650; J1815; J2405; J3475; J3480; J7030; J7120

== ENCOUNTER 2023-03-08 22:03 | Inpatient (IN) | payer OTHER, SELFPAY ==
--- NOTE | ~2023-03-08 | CT_ITS ---
EXAMINATION: CT abdomen pelvis w con DATE: 03/08/2023 22:56 INDICATION: abdominal pain TECHNIQUE: Computed tomography (CT) of the abdomen and pelvis was performed with 100 mL Omnipaque-350 intravenous contrast. Automated exposure control and iterative reconstruction technique were employe d. The dose-length product was 441.95 mGy-cm. COMPARISON: 12/04/2021. FINDINGS: Lower thorax: Unremarkable Liver: Normal. Biliary/Gallbladder: Gallbladder is normal. No bile duct dilation. Pancreas: No mass or duct dilation. Spleen: Normal. Adrenals:No mass. Kidneys: Subcentimeter left midpole hypodensity, too small to characterize but most likely represents a cyst. No suspicious mass, stone, or hydronephrosis. GI tract: No small or large bowel dilation. Normal appendix. Mesentery/Peritoneum: No ascites, mass, or free air. Enlarged mesenteric lymph nodes. Retroperitoneum: No mass. Pelvis: Fluid distended urinary bladder with no wall thickening, the remaining pelvic organs are with in normal limits. Soft Tissues: Soft tissues and body wall unremarkable. Bones: No acute osseous finding. IMPRESSION: Mesenteric lymphadenopathy. Distended urinary bladder, correlate for symptoms of urinary retention. N o other acute abdominopelvic process detected. Reviewed, dictated and finalized at location K. IMPRESSION: Mesenteric lymphadenopathy. Distended urinary bladder, correlate for symptoms o f urinary retention. No other acute abdominopelvic process detected.
--- NOTE | ~2023-03-08 | XR_ITS ---
EXAMINATION: XR chest 1V portable Exam Date/Time: 03/08/2023 22:10 CDT HISTORY: hyperglycemia, weakness Comparison: None. RESULT: Lines, tubes, and devices: None. Lungs and pleura: Clear. Cardiomediastinal silhouette: Unremarkable. Other: No acute osseous or upper abdominal finding. IMPRESSION: No acute cardiopulmonary process. Reviewed, dictated and finalized at location K.
[2023-03-08 22:06] VITALS: BP 112/69; PULSE 127; RESP 23; TEMP 36.4; O2SAT 99
--- NOTE | 2023-03-08 22:12 | ECG_ITS ---
Measurements Intervals [place] Rate: 116 P: 57 OK: 145 QRS: 12 QRSD: 106 T: 45 QT: 321 QTc: 446 Interpretive Statements SINUS TACHYCARDIA OTHERWISE NORMAL ECG COMPARED TO ECG 12/04/2021 01:17:38 NO SIGNIFICANT CHANGES Electronically Signed On 03-09-2023 9:16:43 CDT by Rishabh Westbrook M.D.
[2023-03-08] MEDS: SODIUM CHLORIDE 0.9% IV 1,000 ML 999 ML IV CONT ×2 (22:16→22:17)
[2023-03-08] MEDS: ONDANSETRON INJ 4 MG/2 ML VIAL IV PUSH (22:19)
[2023-03-08 22:29] LABS: Basophils Absolute Auto 0.1 K/mm3 (0.0-0.1); Basophils Percent Auto 0.6 % (0.2-1.2); Eosinophils Percent Auto 0.1 % (0-4.4); Hematocrit 56.1 % (42.0-52.0); Immature Granulocyte Absolute 0.05 K/mm3 (0.00-0.031); Immature Granulocyte Percent A 0.5 % (0-0.5); Lymphocytes Absolute Auto 2.22 K/mm3 (0.9-3.2); Lymphocytes Percent Auto 21.6 % (18.3-44.2); Mean Corpuscular HGB Conc 28.5 g/dl (32-36); Mean Corpuscular Hemoglobin 21.2 pg (26-34); Mean Corpuscular Volume 74.3 fl (80-100); Mean Platelet Volume 9.9 fl (7.4-10.4); Monocytes Absolute Auto 0.4 K/mm3 (0.1-0.6); Monocytes Percent Auto 3.4 % (2.6-8.5); Neutrophils Absolute Auto 7.6 K/mm3 (1.3-6.7); Neutrophils Percent Auto 73.8 % (45.5-73.1); Platelet Count Result 447 k/mm3 (150-375); Red Blood Count 7.55 M/mm3 (4.6-6.20); Red Cell Distribution Width 16.6 % (11.5-14.5); White Blood Count 10.3 K/mm3 (4.5-10.0)
[2023-03-08 22:31] VITALS: BP 122/72; PULSE 112; RESP 23; O2SAT 100
[2023-03-08 22:44] LABS: Alanine Aminotransferase 21 U/L (6-50); Albumin Level 5.3 g/dL (3.5-5.1); Alkaline Phosphatase 111 U/L (38-126); Anion Gap 35 mmol/L (8-16); Aspartate Amino Transferase 15 U/L (17-59); Bilirubin,Total 0.6 mg/dL (0.2-1.3); Blood Urea Nitrogen 17 mg/dL (9-20); Calcium 9.5 mg/dL (8.4-10.2); Carbon Dioxide 7 mmol/L (22-30); Chloride 97 mmol/L (98-107); Estimated CRCL calculation 47 ml/min; Estimated Glomerular Filt Rate 53; Glucose 466 mg/dL (65-110); Lipase 202 U/L (23-300); Magnesium 2.2 mg/dL (1.6-2.3); Phosphorus 7.6 mg/dL (2.5-4.5); Potassium 5.2 mmol/L (3.4-5.0); Sodium 139 mmol/L (137-145)
--- NOTE | 2023-03-08 23:03 | ED.GENADULT ---
HPI - General Adult General Chief complaint: Recheck/Abnormal Lab/Rx Stated complaint: DKA? Time Seen by Provider: 03/08/23 22:05 History of Present Illness HPI narrative: Patient 32-year-old gentleman who presents the emergency department with chief complaint of possible DKA. Patient reports that hisblood sugars been running high and started having nausea and vomiting today. Patient states this feels exactly like when he had DKA in the past patient reports has been compliant with his insulin and reports he has not missed any doses. Patient denies fever chills does report that he has had some abdominal discomfort. Related Data Allergies Allergy/AdvReac Type Severity Reaction Status Date / Time No Known Allergies Allergy Verified 12/04/21 02:09 Review of Systems Review of Systems: A 10 system review of systems was completed on the patient and is negative except for what is stated in the HPI. Nursing and ancillary documentation was reviewed. ON LICENSE OF [facility] Family History Family History Other Unknown family medical history Social History Social History Smoking status: Never smoker Alcohol intake: never Substance use: never Spiritual care concerns: No Exam Narrative: GENERAL: Well-appearing, well-nourished, and in no acute distress. HEAD: Normocephalic, atraumatic. EYES: PERRLA and EOMI. ENT: Nares clear, no rhinorrhea or epistaxis. Mucous membranes dry. NECK: Supple. CHEST: Clear to auscultation. No respiratory distress. HEART: Tachycardic rate and rhythm. No murmur heard. Normal peripheral pulses. ABDOMEN: Soft, nontender, nondistended, normal active bowel sounds. EXTREMITIES: Normal range of motion. No edema. SKIN: Warm, dry, no rash. NEURO: No focal deficits. Alert and oriented x3. PSYCH: Normal mood and affect. Course Vital Signs Vital signs: Vital Signs Temperature 36.4 C L 03/08/23 22:06 Pulse Rate 127 H 03/08/23 22:06 Respiratory Rate 23 H 03/08/23 22:06 Blood Pressure 112/69 03/08/23 22:06 Pulse Oximetry 99 03/08/23 22:06 Oxygen Delivery Room Air 03/08/23 22:06 Temperature 36.4 C L 03/08/23 22:06 Pulse Rate 122 H 03/08/23 23:08 Respiratory Rate 24 H 03/08/23 23:08 Blood Pressure 124/66 03/08/23 23:08 Pulse Oximetry 100 03/08/23 23:08 Oxygen Delivery Room Air 03/08/23 22:06 Medical Decision Making MDM Narrative Medical decision making narrative: Differential diagnosis includes dehydration, diabetic ketoacidosis, gastroenteritis, viral syndrome Laboratory studies were obtained on the patient which showed a white count of 10.3 hemoglobin was 16.0 electrolytes showed a potassium of 5.2 anion gap was 35 BUN was 17 creatinine 1.8 lactic acid was 3.0 glucose was 466 phosphorus was 7.6 bilirubin was normal liver enzymes otherwise normal lipase was 202 beta hydroxybutyrate was 11.7 Fluid resuscitation was started upon immediate arrival to the emergency department the patient received 3 L of normal saline boluses once the patient's electrolytes are back which showed a potassium of 5.2 and insulin drip was started on the patient with the fluids. Patient did have tenderness to palpation to the abdomen and a CT scan was obtained which showed mesenteric adenitis and a enlarged bladder but no other acute findings. Chest x-ray showed no evidence of pneumonia EKG showed sinus tachycardia rate of [address] elevation or ST depression Vital Signs Vital Signs: Vital Signs Temperature 36.4 C L 03/08/23 22:06 Pulse Rate 127 H 03/08/23 22:06 Respiratory Rate 23 H 03/08/23 22:06 Blood Pressure 112/69 03/08/23 22:06 Pulse Oximetry 99 03/08/23 22:06 Oxygen Delivery Room Air 03/08/23 22:06 Temperature 36.4 C L 03/08/23 22:06 Pulse Rate 122 H 03/08/23 23:08 Respiratory Rate 24 H 03/08/23 23:08 Blood Pressu
[2023-03-08 23:08] VITALS: BP 124/66; PULSE 122; RESP 24; O2SAT 100
[2023-03-08] MEDS: INSULIN HUMAN REGULAR (*BKC) 100 UNITS in SODIUM CHLORIDE 0.9% IV 99 ML 8.1 UNITS IV CONT (23:41)
--- NOTE | 2023-03-08 23:43 | PM.IMHP ---
H&P: HPI History of Present Illness Date/Time: 03/08/23 23:43 Chief Complaint: n/v Narrative: This is a 32-year-old male with past medical history significant for insulin-dependent diabetes mellitus patient presents to the emergency room due to nausea vomiting abdominal pain, denies any fevers, rigors, chills, diarrhea, cough, sputum production. Patient states that he is complying with his insulin regimen. Preliminary workup was significant for potassium 5.6 anion gap 26 bicarb 7 hemoglobin A1c is 40 beta hydroxybutyrate is 11.[address] of abdomen and pelvis was reported as: EXAMINATION: CT abdomen pelvis w con DATE: 03/08/2023 22:56 INDICATION: abdominal pain TECHNIQUE: Computed tomography (CT) of the abdomen and pelvis was performed with 100 mL Omnipaque-350 intravenous contrast. Automated exposure control and iterative reconstruction technique were employed. The dose-length product was 441.95 mGy-cm. COMPARISON: 12/04/2021. FINDINGS: Lower thorax: Unremarkable Liver: Normal.? Biliary/Gallbladder: Gallbladder is normal. No bile duct dilation. Pancreas: No mass or duct dilation. Spleen: Normal. Adrenals:No mass. Kidneys: Subcentimeter left midpole hypodensity, too small to characterize but most likely represents a cyst. No suspicious mass, stone, or hydronephrosis. GI tract: No small or large bowel dilation. Normal appendix. Mesentery/Peritoneum: No ascites, mass, or free air. Enlarged mesenteric lymph nodes. Retroperitoneum: No mass. Pelvis: Fluid distended urinary bladder with no wall thickening, the remaining pelvic organs are within normal limits. Soft Tissues: Soft tissues and body wall unremarkable. Bones:? No acute osseous finding. IMPRESSION: Mesenteric lymphadenopathy. Distended urinary bladder, correlate for symptoms of urinary retention. No other acute abdominopelvic process detected. EXAMINATION:? XR chest 1V portable Exam Date/Time:? 03/08/2023 22:10 CDT HISTORY: hyperglycemia, weakness ? Comparison:? None. RESULT: Lines, tubes, and devices:? None. Lungs and pleura:? Clear. Cardiomediastinal silhouette:? Unremarkable. Other:? No acute osseous or upper abdominal finding. ? IMPRESSION: No acute cardiopulmonary process. Review of Systems Review of Systems: Nausea, vomiting, abdomen. Constitutional: Constitutional: Denies chills, Denies fatigue, Denies fever(s), Denies malaise, Denies night sweats and Denies weakness Eyes: Eyes: Denies change in vision ENT: Denies dysphagia and Denies odynophagia Cardiovascular: Cardiovascular: Denies chest pain, Denies leg edema, Denies radiating jaw, neck or arm pain and Denies palpitations Respiratory: Respiratory: Denies cough Gastrointestinal: Gastrointestinal: Reports abdominal pain, Denies dyspepsia, Denies heartburn, Denies diarrhea, Reports nausea and Reports vomiting Genitourinary: Genitourinary: Denies dysuria Musculoskeletal: Musculoskeletal: Reports myalgias Integumentary/Breasts: Skin/Breast: Denies rash Neurologic: Denies focal weakness and Denies Sensory deficit (Neuro) Psychiatric: Psychiatric: Reports no additional psychiatric complaints and Reports as per HPI Endocrine: Endocrine: Denies cold intolerance, Reports fatigue, Denies heat intolerance, Reports polyphagia, Reports polydipsia, Reports polyuria and Denies palpitations Hematologic/Lymphatic: Hematologic/Lymphatic: Reports no additional hematologic/lymphatic complaints and Reports as per HPI Allergic/Immunologic: Allergic/Immunologic: Reports no additional allergic/immunologic complaints and Reports as per HPI [facility] Family History Family History Other Unknown family medical history Social History Social History Smoking status: Never smoker Alcohol intake: never Substance use: never Substance use type: does not use Lack of Transpor
[2023-03-08 23:46] LABS: Glucose Point of Care 421 mg/dl (65-105)
[2023-03-08 23:51] LABS: Appearance Urine Clear (Clear); Bacteria Urine None Seen /hpf; Bilirubin Urine Negative (Negative); Blood Urine Negative (Negative); Color Urine Yellow (Yellow); Glucose Urine UA 3+ mg/dL (Negative); Ketones Urine 4+ mg/dL (Negative); Leukocyte Esterase Ur Negative LEU/UL (Negative); Nitrate Urine Negative (Negative); Non Pathogenic Casts 0-2; Protein Urine 1+ mg/dL (Negative); RBC Urine 0-2 /hpf (0-2); Specific Grav Ur 1.033 (1.001-1.035); Squamous Epithelial Cell Urine None seen /hpf (Few); Urobilinogen Urine 0.2 mg/dL (<2.0); WBC Urine 0-5 /hpf
[2023-03-09] VITALS (10 sets, daily range): BP systolic 96–131; BP diastolic 57–74; PULSE 93–174; RESP 17–22; TEMP 36.7–37; O2SAT 91–99
[2023-03-09 00:13] LABS: Add Urine Microscopic? YES
[2023-03-09 00:31] LABS: Glucose Point of Care 366 mg/dl (65-105)
[2023-03-09] MEDS: SODIUM CHLORIDE 0.9% IV 1,000 ML 999 ML IV CONT (00:39)
--- NOTE | 2023-03-09 01:01 | ADMGEN ---
This patient, Hadley Farias, was admitted to Intensive Care Unit-4. Patient/family oriented to hospital policies and general routines including ID bracelet, bed and alarms, visiting hours, pain management, procedures, bathroom and other care routines, personal items, smoking policy, room service/diet, and visiting hours. Information on how to activate the Rapid Response Team has been discussed. Patient/Family are encouraged to report perceived risks to care and to ask questions if they do not understand what they are told or what they should do.
[2023-03-09 01:02] LABS: Hemoglobin A1C > 14.0 % (<5.7)
[2023-03-09 01:37] LABS: Anion Gap 26 mmol/L (8-16); Blood Urea Nitrogen 16 mg/dL (9-20); Calcium 7.6 mg/dL (8.4-10.2); Carbon Dioxide 7 mmol/L (22-30); Chloride 106 mmol/L (98-107); Estimated CRCL calculation 73 ml/min; Estimated Glomerular Filt Rate > 60; Glucose 346 mg/dL (65-110); Magnesium 2.1 mg/dL (1.6-2.3); Phosphorus 4.7 mg/dL (2.5-4.5); Potassium 5.6 mmol/L (3.4-5.0); Sodium 139 mmol/L (137-145)
[2023-03-09 01:42] LABS: Reflex Lactic Acid Yes or No Add Lactic
[2023-03-09] MEDS: SODIUM CHLORIDE 0.9% IV 1,000 ML 75 ML IV CONT (01:45)
[2023-03-09] MEDS: METOPROLOL TARTRATE INJ 5 MG/5 ML VIAL IV PUSH (02:25)
[2023-03-09 02:59] LABS: Lactic Acid 1.8 mmol/L (0.7-2.0)
[2023-03-09 03:06] LABS: Glucose Point of Care 346 mg/dl (65-105)
[2023-03-09 03:06] LABS: Glucose Point of Care 277 mg/dl (65-105)
[2023-03-09 03:06] LABS: Glucose Point of Care 231 mg/dl (65-105)
[2023-03-09] MEDS: KCL 20 MEQ/D5/0.45% SOD CHL 1,000 ML 150 ML IV CONT (03:06)
[2023-03-09 05:06] LABS: Anion Gap 18 mmol/L (8-16); Blood Urea Nitrogen 13 mg/dL (9-20); Calcium 8.3 mg/dL (8.4-10.2); Carbon Dioxide 11 mmol/L (22-30); Chloride 109 mmol/L (98-107); Estimated CRCL calculation 86 ml/min; Estimated Glomerular Filt Rate > 60; Glucose 174 mg/dL (65-110); Potassium 4.8 mmol/L (3.4-5.0); Sodium 138 mmol/L (137-145)
[2023-03-09 05:58] LABS: Glucose Point of Care 197 mg/dl (65-105)
[2023-03-09 05:58] LABS: Glucose Point of Care 182 mg/dl (65-105)
[2023-03-09 06:40] LABS: Glucose Point of Care 143 mg/dl (65-105)
[2023-03-09 06:41] LABS: Glucose Point of Care 146 mg/dl (65-105)
[2023-03-09] MEDS: LACTATED RINGERS 1,000 ML 999 ML IV CONT (07:53)
[2023-03-09] MEDS: ENOXAPARIN 40 MG/0.4 ML SYRINGE SUB-Q (08:06)
--- NOTE | 2023-03-09 08:22 | WPDCNINT ---
Assessment and Plan Assessment and plan (1) Diabetic ketoacidosis: Code(s): E11.10 - Type 2 diabetes mellitus with ketoacidosis without coma Status: Acute Assessment and Plan: Patient presented with nausea, vomiting, abdominal discomfort and elevated blood sugars. Was found to be in diabetic ketoacidosis in the ER. Received 2 L IV fluid bolus in the ER, 1 L IV fluid bolus in the ICU. Patient was started on insulin infusion per DKA protocol. -this morning patient remains tachycardic, 1 L of LR bolus was given with improvement in his tachycardia -remains on insulin infusion as he still is acidotic with elevated anion gap and elevated sugars -continue insulin infusion, will transition to long-acting insulin and sliding scale insulin once anion gap closes -hemoglobin A1c is > 14.0 this admission, patient states he checks his blood sugar at home and they are around 200+ on a regular basis (2) KILO (acute kidney injury): Code(s): N17.9 - Acute kidney failure, unspecified Status: Resolved Assessment and Plan: Patient seemed to be hypovolemia/dehydrated. Creatinine was 1.80 on admission -received adequate amounts of IV fluids, -urine output has been adequate -creatinine down to 1.10 this morning - continue to monitor renal function, electrolytes and urine output -hyperkalemia is resolved which was most likely related to acidosis secondary to DKA (3) Nausea and vomiting: Code(s): R11.2 - Nausea with vomiting, unspecified Status: Acute Assessment and Plan: Nausea and vomiting has resolved -03/08/2023 CT abdomen and pelvis: Showed mesenteric lymphadenopathy, distended urinary bladder, correlate for symptoms of urinary retention. No other acute abdominal pelvic process detected -patient denies any abdominal pain/discomfort at this time Plan DVT prophylaxis: Lovenox Stress ulcer prophylaxis: Not indicated Nutrition: NPO for now Code Status: Full code Critical Care Time Spent: 47 minutes Due to a high probability of clinically significant, life threatening deterioration, the patient required my highest level of preparedness to intervene emergently and I personally spent this critical care time directly and personally managing the patient. This critical care time included obtaining a history; examining the patient; pulse oximetry; ordering and review of studies; arranging urgent treatment with development of a management plan; evaluation of patient's response to treatment; frequent reassessment; and discussions with other providers. It was exclusive of separately billable procedures and treating other patients and teaching time. Please see Assessment and Plan section and the rest of the note for further information on patient assessment and treatment This dictation may have been done utilizing a voice recognition system. Attempts have been made to correct errors. However, there may be uncorrected grammatical, spelling, and recognitions errors present. Infantry Assaultman Consult Note Consult date: 03/09/23 Reason for consult: Diabetic ketoacidosis, nausea, vomiting, abdominal discomfort and elevated blood sugars HPI: Hadley Farias is a 32 year old male with past medical history of insulin-dependent diabetes with history of DKA in the past presented the ED on 03/08/2023 with complains of nausea, vomiting, abdominal discomfort, elevated blood sugars for 1 day. Patient denies any fevers, chills. Denies any cough, shortness of breath, chest pain. He has been compliant with his medications. In the ER patient was found to be and diabetic ketoacidosis with elevated beta hydroxybutyrate, anion gap of 35, elevated blood sugars, acute kidney injury. Patient was was given 2 L IV fluid bolus in the ER, 1 L IV fluid bolus in the ICU, was started on insulin infusion per DKA protocol and transferred to the ICU for further management. -03/08/2023 CT abdomen and pelvis: Showed mesenteric lymphadenopathy, distended
[2023-03-09 08:37] LABS: Anion Gap 10 mmol/L (8-16); Blood Urea Nitrogen 12 mg/dL (9-20); Calcium 8.6 mg/dL (8.4-10.2); Carbon Dioxide 17 mmol/L (22-30); Chloride 111 mmol/L (98-107); Estimated CRCL calculation 103 ml/min; Estimated Glomerular Filt Rate > 60; Glucose 128 mg/dL (65-110); Potassium 4.5 mmol/L (3.4-5.0); Sodium 138 mmol/L (137-145)
[2023-03-09 09:14] LABS: Glucose Point of Care 145 mg/dl (65-105)
[2023-03-09 09:14] LABS: Glucose Point of Care 111 mg/dl (65-105)
[2023-03-09 09:51] LABS: Glucose Point of Care 102 mg/dl (65-105)
--- NOTE | 2023-03-09 10:35 | PM.IMPN ---
Progress Note: A&P Assessment and Plan (1) Diabetic ketoacidosis: Code(s): E11.10 - Type 2 diabetes mellitus with ketoacidosis without coma Status: Acute Assessment and Plan: Admit to ICU On insulin drip Serial BMPs NPO Replace electrolytes as needed (2) Diabetes mellitus: Code(s): E11.9 - Type 2 diabetes mellitus without complications Status: Acute Assessment and Plan: Not well controlled Hemoglobin A1c is 14 Currently NPO On Lantus and aspart at home (3) Hepatic steatosis: Code(s): K76.0 - Fatty (change of) liver, not elsewhere classified Status: Acute Assessment and Plan: Follow-up in outpatient setting Subjective Date/time seen: 03/09/23 10:35 Interval history: No new complaint Exam Narrative: General: Pleasant young male in no acute distress HEENT: Pupils equal and reactive, sclera is clear, moist oral mucosa Neck:? Supple Respiratory:? Clear to auscultation bilaterally Cardiac:? Regular rate and rhythm, S1-S2 normal Abdomen:? Soft, nontender, nondistended Extremities:? No edema, palpable pedal pulse Neuro:? Patient is awake, alert, oriented, answers to questions appropriately and follows simple commands in all extremities Skin:? No lesions noted Psych:? Normal mentation and affect Objective Data Vital Signs Vital Signs: Vital Signs - 24 hr 03/08/23 22:06 03/08/23 22:31 03/08/23 23:08 Temperature 97.5 F L Pulse Rate 127 H 112 H 122 H Respiratory Rate 23 H 23 H 24 H Blood Pressure 112/69 122/72 124/66 Pulse Oximetry 99 100 100 Oxygen Delivery Room Air 03/09/23 02:00 03/09/23 02:00 03/09/23 02:25 Temperature Pulse Rate 138 H 138 H 174 H Respiratory Rate 20 Blood Pressure 123/72 Pulse Oximetry 98 Oxygen Delivery 03/09/23 04:00 03/09/23 01:00 03/09/23 04:00 Temperature 98.5 F Pulse Rate 96 Respiratory Rate 17 Blood Pressure 101/62 Pulse Oximetry 91 Oxygen Delivery Room Air Room Air 03/09/23 04:00 03/09/23 01:00 03/09/23 06:00 Temperature 98.1 F Pulse Rate 114 H 121 H 108 H Respiratory Rate 18 Blood Pressure 131/74 Pulse Oximetry 99 Oxygen Delivery 03/09/23 06:00 03/09/23 08:00 03/09/23 08:00 Temperature 98.3 F Pulse Rate 106 H 94 93 Respiratory Rate 20 19 Blood Pressure 98/60 L 96/57 L Pulse Oximetry 96 99 Oxygen Delivery Intake/Output Intake/Output: Intake & Output 03/06/23 03/07/23 03/08/23 03/09/23 23:59 23:59 23:59 23:59 Intake Total 1999 999 Output Total 1160 Balance 1999 -160 Meds/Results Medications: Active Medications Generic Name Dose Route Start Last Admin Trade Name Freq PRN Reason Stop Dose Admin Dextrose 12.5 gm 03/08/23 23:48 Dextrose 50% 25 Gm/50 Ml Syringe IV PUSH PRN PRN Hypoglycemia Protocol Enoxaparin Sodium 40 mg 03/09/23 09:00 03/09/23 08:06 Enoxaparin 40 Mg/0.4 Ml Syringe SUB-Q 40 mg DAILY JENNIFER Administration Glucagon 1 mg 03/08/23 23:48 Glucagon For Inj 1 Mg Vial IM PRN PRN Hypoglycemia Protocol Glucose 15 gm 03/08/23 23:48 Glucose Oral Gel 15 Gm Of Glucse In 37.5 Gm Tube PO PRN PRN Hypoglycemia Protocol Insulin Human Regular 100 100 mls @ 2.1 mls/hr 03/08/23 22:55 03/09/23 09:46 units/ Sodium Chloride IV CONT 2.1 units/hr .Q24H JENNIFER 2.1 mls/hr Titration Protocol 2.1 UNITS/HR Potassium Chloride/Dextrose/Sod Cl 1,000 mls @ 150 mls/hr 03/08/23 23:50 03/09/23 03:06 Kcl 20 Meq/D5/0.45% Sod Chl IV CONT 150 mls/hr .[id number] JENNIFER Administration Sodium Chloride 1,000 mls @ 75 mls/hr 03/08/23 23:50 03/09/23 03:07 Normal Saline Iv IV CONT 0 mls/hr .[id number] JENNIFER Infusion Dextrose 1,000 mls @ 100 mls/hr 03/08/23 23:48 Dextrose 5% 1,000 Ml IVPB PRN PRN Hypoglycemia Protocol Metformin HCl 500 mg 03/09/23 10:10 Metformin Hcl 500 Mg Tablet PO BIDWM JENNIFER Non-Formula
[2023-03-09] MEDS: INSULIN GLARGINE (*BKC) 100 UNITS/ML 35 UNITS SUB-Q (10:58)
[2023-03-09 11:05] LABS: Glucose Point of Care 124 mg/dl (65-105)
[2023-03-09] MEDS: metFORMIN HCL 500 MG TABLET PO (11:09)
[2023-03-09] MEDS: INSULIN ASPART (*BKC) 100 UNITS/ML 7 UNITS SUB-Q (11:59)
[2023-03-09 12:04] LABS: Glucose Point of Care 125 mg/dl (65-105)
[2023-03-09] MEDS: ACETAMINOPHEN 500 MG TABLET PO (12:20)
[2023-03-09 13:06] LABS: Glucose Point of Care 180 mg/dl (65-105)
--- NOTE | 2023-03-09 15:15 | PCCCNOTE ---
On 03/09/23, the student, Maty Hardy, provided care and completed [facility] documentation on this patient. I have reviewed the student's documentation and agree with the findings.
--- NOTE | 2023-03-09 15:21 | PC.NURSE ---
At 1510, patient hit the call light and stated that he was ready to leave now . This nurse went to assess patient status. Patient was sitting on couch, fully dressed and had removed bilateral AC IV accesses. Patient again stated to the nurse that he wanted to sign out AMA . Patient educated of risks of signing out before a doctor has medically cleared him of diagnosed condition. Patient understands and states he still wishes to sign out AMA. Patient alert and oriented and has already called for a ride home. Provider Dr. Presley notified at updated at 1514. Patient signed AMA paperwork at 1517, and left the ICU department at 1518. manager mobility made aware as well.
== END 2023-03-09 15:18 | disposition left against medical advice (07) | DRG 420 ==
LOC: ANHED 23:47 → ANHICU 03-09 00:05
PROVIDERS: Admitting Provider Internal Medicine; Emergency Provider Emergency Medicine; Visit Provider Chiropractor
DX: E11.10 Type 2 diabetes mellitus with ketoacidosis without coma (principal); N17.9 Acute kidney failure, unspecified; E87.5 Hyperkalemia; K76.0 Fatty (change of) liver, not elsewhere classified; R59.1 Generalized enlarged lymph nodes; R33.9 Retention of urine, unspecified; Z79.4 Long term (current) use of insulin; Z79.84 Long term (current) use of oral hypoglycemic drugs
CPT/HCPCS: 36415; 71045; 74177; 80048; 80053; 81001; 82010; 82948; 83036; 83605; 83690; 83735; 84100; 85025; 93005; 96361; 96374; 99291; A9270; J1650; J1815; J2405; J3480; J7030; J7120; Q9967

== ENCOUNTER 2023-07-18 13:58 | Emergency (ER) | payer OTHER, SELFPAY ==
[2023-07-18] VITALS (9 sets, daily range): BP systolic 92–122; BP diastolic 55–76; PULSE 74–106; RESP 16–20; TEMP 36.6; O2SAT 98–100
--- NOTE | ~2023-07-18 | XR_ITS ---
EXAMINATION: XR chest 2V 07/18/2023 14:32 INDICATION: Centralized chest pain PROCEDURE: 2 view chest COMPARISON: 03/08/2023 FINDINGS: The lungs are clear. The cardiomediastinal silhouette is within normal limits. There are no pleural effusions. There is no pneumothorax suspected. IMPRESSION: 1: NO ACUTE CARDIOPULMONARY DISEASE. Reviewed, dictated and finalized at location L.
--- NOTE | 2023-07-18 14:17 | ECG_ITS ---
Measurements Intervals Delta Rate: 102 P: 62 MT: 143 QRS: 6 QRSD: 110 T: 51 QT: 320 QTc: 418 Interpretive Statements SINUS TACHYCARDIA ABNORMAL RHYTHM ECG COMPARED TO ECG 03/08/2023 22:40:27 NO SIGNIFICANT CHANGES Electronically Signed On 07-18-2023 19:59:01 CDT by Toyin Lam M.D.
--- NOTE | 2023-07-18 14:39 | ED.CHESTPAIN ---
HPI - Chest Pain General Chief Complaint: Chest Pain Stated Complaint: CP Time Seen by Provider: 07/18/23 14:23 Source: patient Mode of arrival: EMS Limitations: no limitations History of Present Illness HPI narrative: This is a 33 year old male that presents to the ER for an episode of chest pain. Reports he was running to his doctors office because he was late for his appointment. He started to have some chest discomfort that was relieved with resting. No longer has any chest discomfort. His doctor was concerned he may be having a heart attack so sent him in for evaluation. Denies fever, shortness of breath, or lower extremity edema. Related Data Home Medications Medication Instructions Recorded Confirmed insulin lispro 100 unit/mL subcut 07/18/23 subcutaneous pen Allergies Allergy/AdvReac Type Severity Reaction Status Date / Time No Known Allergies Allergy Verified 07/18/23 14:03 Review of Systems Review of Systems: CONSTITUTIONAL: Denies fever CARDIOVASCULAR: Reports chest pain. Denies palpitations, or edema. RESPIRATORY: Denies dyspnea. All systems reviewed & are unremarkable except as noted in HPI and below PMFSH Past Medical History Medical History (Updated 07/18/23 @ 18:30 by Marla Bah PA-C) Diabetes mellitus Family History Family History Other Unknown family medical history Social History Social History Smoking status: Never smoker Alcohol intake: never Substance use: never Substance use type: does not use Lack of Transportation: No Lack of Food: Never True Current Housing: I Have Housing Concerned About Future Housing: No Difficulty Paying Gas/Electric Bills: No Difficulty Paying for Meds: No Currently Unemployed: No Education: Decline to Answer Difficulty w/ Childcare or Family Care: No Spiritual care concerns: No Exam Narrative: GENERAL: Well-appearing, well-nourished, and in no acute distress. HEAD: Normocephalic, atraumatic. EYES: EOMI. CHEST: Clear to auscultation. No respiratory distress. No wheezes rales or rhonchi HEART: Regular rate and rhythm. No murmur heard. Normal peripheral pulses. EXTREMITIES: Normal range of motion. No edema. SKIN: Warm, dry, no rash. NEURO: No focal deficits. Alert and oriented x3. PSYCH: Normal mood and affect Course Course Emergency Course: Patient updated on work-up and agrees with plan of care Vital Signs Vital signs: Vital Signs Pulse Rate 105 H 07/18/23 14:05 Temperature 97.8 F 07/18/23 14:07 Pulse Rate 74 07/18/23 17:39 Respiratory Rate 20 07/18/23 17:39 Blood Pressure 102/67 07/18/23 17:39 Pulse Oximetry 100 07/18/23 17:39 Oxygen Delivery Room Air 07/18/23 14:11 MDM - Chest Pain MDM Narrative Medical decision making narrative: Patient presents to the emergency department for an episode of chest pain today. Patient's pain had resolved upon arrival to the ED. He is in no acute distress. Mildly tachycardic upon arrival, this normalized with IV fluid administration. CBC without concerning findings. Metabolic panel with elevation in blood glucose. No anion gap. This did downtrend with IV fluid hydration. EKG without acute ST changes and baseline and 3-hour troponin are negative. Chest x-ray without acute cardiopulmonary normality. His D-dimer is not elevated. Patient was updated on work-up and agrees with plan of care. Instructed to have close follow-up with primary provider. He was given warnings to return to the ER Differential Diagnosis Differential diagnosis: Likely pneumothorax, stable angina, atypical chest pain, costochondritis and chest pain Lab Data Attestation: I reviewed the patient's lab results. 07/18/23 15:08 07/18/23 15:08 Labs: Lab Results 07/18/23 07/18/23 07/18/23 Range/Uni
[2023-07-18 15:22] LABS: Basophils Absolute Auto 0.1 K/mm3 (0.0-0.1); Basophils Percent Auto 0.6 % (0.2-1.2); Eosinophils Percent Auto 0.5 % (0-4.4); Hematocrit 48.6 % (42.0-52.0); Hemoglobin 14.5 g/dL (14.0-18.0); Immature Granulocyte Absolute 0.02 K/mm3 (0.00-0.031); Immature Granulocyte Percent A 0.2 % (0-0.5); Lymphocytes Percent Auto 11.1 % (18.3-44.2); Mean Corpuscular HGB Conc 29.8 g/dl (32-36); Mean Corpuscular Hemoglobin 20.8 pg (26-34); Mean Corpuscular Volume 69.8 fl (80-100); Mean Platelet Volume 10.2 fl (7.4-10.4); Monocytes Absolute Auto 0.7 K/mm3 (0.1-0.6); Monocytes Percent Auto 8.8 % (2.6-8.5); Neutrophils Absolute Auto 6.4 K/mm3 (1.3-6.7); Neutrophils Percent Auto 78.8 % (45.5-73.1); Platelet Count Result 254 k/mm3 (150-375); Red Blood Count 6.96 M/mm3 (4.6-6.20); Red Cell Distribution Width 14.2 % (11.5-14.5); White Blood Count 8.1 K/mm3 (4.5-10.0)
[2023-07-18 15:27] LABS: Alanine Aminotransferase 24 U/L (6-50); Albumin Level 4.3 g/dL (3.5-5.1); Alkaline Phosphatase 85 U/L (38-126); Anion Gap 15 mmol/L (8-16); Aspartate Amino Transferase 20 U/L (17-59); Bilirubin,Total 0.7 mg/dL (0.2-1.3); Blood Urea Nitrogen 11 mg/dL (9-20); Calcium 9.4 mg/dL (8.4-10.2); Carbon Dioxide 21 mmol/L (22-30); Chloride 98 mmol/L (98-107); Estimated CRCL calculation 82 ml/min; Estimated Glomerular Filt Rate > 60; Glucose 442 mg/dL (65-110); Lipase 103 U/L (23-300); Potassium 4.2 mmol/L (3.4-5.0); Sodium 134 mmol/L (137-145)
[2023-07-18 15:32] LABS: Partial Thromboplastin Time 24.5 SECONDS (22.3-36.8); Prothrombin Time 13.4 Seconds (11.1-14.7)
[2023-07-18 15:36] LABS: Hypochromasia 1+ (NORMAL); Ovalocytes 1+ (NORMAL); Platelet Estimate Adequate (Adequate)
[2023-07-18 15:37] LABS: Schistocytes None Seen (NORMAL)
[2023-07-18 15:39] LABS: Troponin I 0.014 ng/mL (0.000-0.034)
[2023-07-18] MEDS: SODIUM CHLORIDE 0.9% IV 1,000 ML 999 ML IV CONT (15:54)
[2023-07-18] MEDS: ASPIRIN 81 MG CHEWABLE TABLET 324 MG PO (15:54)
[2023-07-18 17:15] LABS: Glucose Point of Care 353 mg/dl (65-105)
[2023-07-18 18:15] LABS: Troponin I 0.015 ng/mL (0.000-0.034)
== END 2023-07-18 19:00 | disposition home or self-care (01) ==
PROVIDERS: Emergency Medicine; Emergency Provider Physician Assistant; PCP Physician Assistant
DX: R07.9 Chest pain, unspecified (principal); E11.9 Type 2 diabetes mellitus without complications; Z79.4 Long term (current) use of insulin
CPT/HCPCS: 36415; 71046; 80053; 82948; 83690; 84484; 85025; 85380; 85610; 85730; 93005; 96360; 99284; A9270; J7030